=== PATIENT | female | born 1965 | race Caucasian/White ===

== ENCOUNTER → 2016-07-26 | Outpatient (CLI) | payer BC ==
[~2016-07-26] MED LIST: MULT-506 PO; VITAMIN D PO
--- NOTE | 2016-07-26 13:45 | DIAGNOSTIC IMAGING REPORT ---
LEFT WRIST 4 VIEWS HISTORY: M25.532 Wrist pain, acute, left COMPARISON: None. FINDINGS: There is no fracture or dislocation. Soft tissues are unremarkable. No radiopaque foreign bodies. IMPRESSION: No fractures. Electronically signed by: Jamil Ackerman M.D. 07/26/2016 1:44 PM Dictated Date/Time: 07/26/2016 1:43 PM
== END | disposition home or self-care (01) ==
LOC: C.RAD1850 13:23
PROVIDERS: ATTEND Nurse Practitioner Adult Health
DX: M25.532 Pain in left wrist (principal)

== ENCOUNTER → 2017-03-12 | Outpatient (CLI) | payer BC ==
[~2017-03-12] VITALS: Ht 162.6 cm; Wt 103.6 kg
[2017-03-12 12:37] VITALS: BP 140/86; PULSE 82; Ht 162.6 cm; Wt 103.6 kg
== END | disposition home or self-care (01) ==
LOC: C.NEUR 12:08
PROVIDERS: ATTEND Internal Medicine Pulmonary Disease
DX: R06.83 Snoring (principal); G47.00 Insomnia, unspecified; J34.2 Deviated nasal septum; R53.83 Other fatigue; I10 Essential (primary) hypertension; E66.9 Obesity, unspecified

== ENCOUNTER → 2017-03-29 | Outpatient (CLI) | payer BC ==
--- NOTE | 2017-03-29 15:24 | MAMMOGRAPHY REPORT ---
BILATERAL DIGITAL SCREENING MAMMOGRAM TOMOSYNTHESIS WITH CAD: 03/29/2017 CLINICAL HISTORY: Routine screening. Patient has no complaints. TECHNIQUE: Breast tomosynthesis in addition to standard 2D mammography was performed. Current study was also evaluated with a Computer Aided Detection (CAD) system. COMPARISON: Comparison is made to exams dated: 03/28/2016 mammogram, 10/05/2015 mammogram, 10/05/2015 ul trasound, 04/06/2015 mammogram, 04/06/2015 ultrasound, and 03/24/2015 mammogram - [facility]. BREAST COMPOSITION: The tissue of both breasts is heterogeneously dense, which may obscure small mas ses. FINDINGS: No suspicious masses, calcifications, or areas of architectural distortion are noted in ei ther breast. There has been no significant interval change compared to prior exams. Small bilateral circumscribed benign-appearing masses are again noted, which likely represent cysts, with cysts seen on prior ultrasound exams. Scattered bilateral benign-appearing calcifications are stable. IMPRESSION: ACR BI-RADS CATEGORY 2: BENIGN There is no mammographic evidence of malignancy. A 1 year screening mammogram is recommended. The pa tient will receive written notification of the results. Approximately 10% of breast cancers are not detected with mammography. A negative mammographic report should not delay biopsy if a clinically suggestive mass is present. Jeannine Rebollar M.D. /:03/29/2017 15:03:23 Crm Functional Analyst: Cyndi ESPINOZA)(M), [facility] letter sent: Normal 1/2 BI-RADS Code: ACR BI-RADS Category 2: Benign
== END | disposition home or self-care (01) ==
LOC: C.MAMM 11:14
PROVIDERS: ATTEND Obstetrics & Gynecology
DX: Z12.31 Encounter for screening mammogram for malignant neoplasm of breast (principal)

== ENCOUNTER → 2017-06-17 | Outpatient (CLI) | payer BC, OTHER ==
--- NOTE | 2017-06-19 10:01 | POLYSOMNOGRAPH REPORT ---
CLINICAL DATA: A 52-year-old female with a BMI of 39.2 referred by myself and Nay Sandoval for a sleep study for symptoms of loud snoring, obesity, fatigue, and gasping episodes at night. She also has about deviated septum and may have allergies. Her [place] sleepiness score is 4/24. On the evening of 06/17/2017, a home sleep apnea test was performed using a Thumbplay type 3 monitor. RECORDING RESULTS: Total recording time was 10 hours. The patient's monitoring time and estimated sleep time was 9.8 hours. RESPIRATORY DATA: Mild sleep apnea was documented. The EVITA was 7.1. There were 37 obstructive and 1 central apneic episodes. There were 32 hypopneic episodes recorded. The longest respiratory event was 46 seconds. OXIMETRY DATA: Transient nocturnal hypoxemia was seen. Oxygen russel was 82%. Mean saturation was 94%. Time below 89% was 3 minutes. HEART RATE DATA: Heart rates ranged from 55-69 beats per minute. SNORING DATA: Loud snoring was recorded throughout the night. IMPRESSION: Mild sleep apnea/hypopnea with an EVITA of 7.1. RECOMMENDATIONS: The patient would benefit from use of an oral appliance, a repeat sleep study with CPAP, or use of auto CPAP. Clinical correlation is needed.
== END | disposition home or self-care (01) ==
LOC: C.NEUR 09:01
PROVIDERS: ATTEND Internal Medicine Pulmonary Disease
DX: J34.2 Deviated nasal septum (principal); R53.83 Other fatigue; E66.9 Obesity, unspecified; R06.83 Snoring

== ENCOUNTER → 2017-09-17 | Outpatient (CLI) | payer OTHER ==
--- NOTE | 2017-09-17 09:26 | DIAGNOSTIC IMAGING REPORT ---
FUSION CT SINUSES W/O CLINICAL HISTORY: 52 years-old Female presenting with J32.9 Chronic mxalunnovT63.3 Hypertrophy of both inferior nasal turbinates. TECHNIQUE: Multidetector CT of the sinuses was performed without the use of intravenous contrast. IV contrast: None. A dose lowering technique was used consistent with the principles of ALARA (as low as reasonably achievable). COMPARISON: None. CT DOSE (mGy.cm): The estimated cumulative dose is 565.02 mGy.cm. FINDINGS: Internal Combustion Engineer topogram: Unremarkable. Paranasal sinuses clear. Mastoid air cells and middle ears clear. No sclerosis of the sinus thomas. Leftward deviation of the bony nasal septum with bony spurring. Nasofrontal ethmoidal recesses patent. Ostiomeatal units patent. No significant anatomic variant. No bony dehiscence of the carotid siphons or optic canals. Mucosal swelling of the right inferior turbinate. Slightly relates to normal nasal passage cycling. Orbits normal. Limited intracranial evaluation within normal limits. Superficial soft tissues of the face normal apart from small calcific densities in the cutis, which likely relate to a history of cystic acne. IMPRESSION: 1. No current evidence of acute or chronic sinusitis. 2. No significant anatomic variant. 3. Mucosal swelling of the right inferior turbinate likely relates to normal nasal passage cycling. Electronically signed by: Alejandro Schreiber M.D. 09/17/2017 9:25 AM Dictated Date/Time: 09/17/2017 9:19 AM
== END | disposition home or self-care (01) ==
LOC: C.CTS 09:04
DX: J32.9 Chronic sinusitis, unspecified (principal); J34.3 Hypertrophy of nasal turbinates

== ENCOUNTER 2017-10-16 05:50 | Emergency (ER) | payer OTHER ==
[~2017-10-16] VITALS: Ht 162.6 cm; Wt 105.9 kg
[2017-10-16 05:55] VITALS: TEMP 36.8; Ht 162.6 cm; Wt 105.9 kg
[2017-10-16] MEDS ORDERED: ACETAMINOPHEN 500 MG TAB PO STA (05:59)
[2017-10-16] MEDS ORDERED: LISI-461 PO (06:24)
[2017-10-16] MEDS ORDERED: IBUP-103 PO (06:24)
[2017-10-16] MEDS ORDERED: MONT1TAB3 PO (06:24)
[2017-10-16] MEDS ORDERED: CHOL1CAP57 PO (06:24)
--- NOTE | 2017-10-16 06:34 | DIAGNOSTIC IMAGING REPORT ---
CT HEAD WITHOUT CONTRAST (CT) CLINICAL HISTORY: Head pain status post trauma COMPARISON STUDY: No previous studies for comparison. TECHNIQUE: Axial CT of the brain is performed from the vertex to the skull base. IV contrast was not administered for this examination. A dose lowering technique was utilized adhering to the principles of ALARA. CT DOSE: 841.38 mGy.cm FINDINGS: No intra or extra-axial mass lesions are visualized. There is no CT evidence of acute cortical infarction. There is no evidence of midline shift. There is no acute hemorrhage. No calvarial fractures are visualized. There is no evidence of pathologic ventricular dilatation. There is a left frontal, periorbital and premaxillary soft tissue hematoma IMPRESSION: 1. No acute intracranial findings 2. Left frontal, periorbital, and premaxillary soft tissue hematoma Electronically signed by: Shane Ackerman M.D. 10/16/2017 6:33 AM Dictated Date/Time: 10/16/2017 6:31 AM
--- NOTE | 2017-10-16 06:45 | EMERGENCY ROOM VISIT NOTE ---
History First contact with patient: 05:58 Chief Complaint: FALL Stated Complaint: FALL-LEFT EYE SWOLLEN History of Present Illness The patient is a 52 year old female who presents to the Emergency Room with complaints of head injury with left orbital swelling after patient's actually tripped and hit her face off the scale in the bathroom early this morning at 2: 30 AM. Patient states she took 2 ibuprofen's and iced the area. She states the swelling progressed and that is what prompted her to come to the ER. Patient describes a headache as throbbing, ranging severity 5 out of 10 localized to the left orbital region. Nothing makes it better or worse. Patient denies chest pain, dyspnea, cervical pain, eye pain, vision changes, balance problems, dental pain, jaw pain, chest pain, dyspnea, abdominal pain, numbness, tingling or any other medical complaints. No blood thinners. Patient states she had some mild hand discomfort but that has now resolved. Review of Systems An 10 system review of systems was completed with positives and pertinent negatives listed in the HPI. Past Medical/Surgical History Hypertension, seasonal allergies Social History Smoking Status: Never Smoker Smokeless Tobacco Use: No Drug Use: none Marital Status: Housing Status: lives with family Current/Historical Medications Scheduled Cholecalciferol (Vitamin D3), 1 CAP PO DAILY Lisinopril (Lisinopril), 10 MG PO DAILY Montelukast Sodium (Singulair), 10 MG PO DAILY Multivitamin (Multivitamin), 1 TAB PO QAM Scheduled PRN Ibuprofen Tab (Advil), 200-600 MG PO Q4H PRN for Pain Physical Exam Vital Signs Date Time Temp Pulse Resp B/P (MAP) Pulse Ox O2 Delivery O2 Flow Rate FiO2 10/16/17 05:55 36.8 107 18 178/92 96 Room Air Physical Exam VITALS: Vitals are noted on the nurse's note and reviewed by myself. Vital signs hypertensive. GENERAL: Pleasant female ambulating without difficulties, in no acute distress, nondiaphoretic, well-developed well-nourished. SKIN: Left orbital contusion. The rest of the skin was without rashes, erythema , edema, or bruising. There is no tenting of the skin. Capillary reflex less than 2 seconds. HEAD: Normocephalic atraumatic. Face: Left orbit tender to palpation with contusion present. Patient can fully open and close jaw without pain. No dental injury appreciated. EARS: External auditory canals clear, tympanic membranes pearly waldrop without erythema or effusion bilaterally. EYES: Pupils equal round and reactive to light and accommodation. Conjunctivae without injection, sclerae without icterus. Extraocular movements intact. No pain with EOMI. NOSE: Patent, turbinates without inflammation or discharge. No sinus tenderness. MOUTH: Mucous membranes moist. Pharynx without erythema or exudate. Uvula midline. Airway patent. Tongue does not deviate. NECK: Supple without nuchal rigidity. No lymphadenopathy. No thyromegaly. Cervical spine is nontender. No JVD. HEART: Regular rate and rhythm without murmurs gallops or rubs. LUNGS: Clear to auscultation bilaterally without wheezes, rales or rhonchi. No retractions or accessory muscle use. ABDOMEN: Positive bowel sounds x 4. Normal tympanic percussion. Soft, nontender, without masses or organomegaly. Steel sign negative. No guarding or rebound tenderness. No CVA tenderness MUSCULOSKELETAL: No muscle atrophy, erythema, or edema noted. No thoracic or lumbar tenderness. 5 out of 5 strength throughout. NEURO: Patient was alert and oriented to person place and time. Normal sensation to light and sharp touch. No focal neurological deficits. Cranial nerves II through XII grossly intact. No prior drift. Cerebellar exam intact. Medical Decision & Procedures Medications Administered Medications (Trade) Dose Ordered Sig/Damian Route Start Time Stop Time Status Last Admin Dose Admin Acetaminophen (Tylenol Tab) 1,000 mg NOW STAT PO 10/16/17 05:59 10/16/17 06:05 DC 10/16/17 06:20 1,000 MG ED Course Prior records/ancillary studies reviewed. Triage Nursing notes reviewed. Additional history obtained from family. The patient's history was concerning for traumatic head injury Differential diagnosis: Etiologies such as concussion, contusion, fracture, subdural hematoma, epidural hematoma, intraparenchymal hemorrhage, as well as other traumatic pathologies were entertained. Physical examination findings: As above. ER treatment provided: P.o. Tylenol On reassessment the patient felt better. Diagnostics interpreted by me: Imaging studies: CT FACIAL: Compared to 09/17/17. No evidence of acute fracture. Left facial periorbital soft tissue swelling. Radiologist: Tricia Sellers M.D. CT HEAD WITHOUT CONTRAST (CT) CLINICAL HISTORY: Head pain status post trauma COMPARISON STUDY: No previous studies for comparison. TECHNIQUE: Axial CT of the brain is performed from the vertex to the skull base. IV contrast was not administered for this examination. A dose lowering technique was utilized adhering to the principles of ALARA. CT DOSE: 841.38 mGy.cm FINDINGS: No intra or extra-axial mass lesions are visualized. There is no CT evidence of acute cortical infarction. There is no evidence of midline shift. There is no acute hemorrhage. No calvarial fractures are visualized. There is no evidence of pathologic ventricular dilatation. There is a left frontal, periorbital and premaxillary soft tissue hematoma IMPRESSION: 1. No acute intracranial findings 2. Left frontal, periorbital, and premaxillary soft tissue hematoma Electronically signed by: Shane Ackerman M.D. 10/16/2017 6:33 AM Dictated Date/Time: 10/16/2017 6:31 AM It appears the patient has a head injury with orbital contusion. Patient had no pain with EOMI. She had a normal neurological exam and was neurovascularly intact. Negative CT imaging. Patient was counseled on head injury signs and symptoms and on contusion. She is advised to symptoms persist to follow-up concussion clinic here in town or here in the ER sooner for headache, fevers, confusion, vomiting, worsening signs or symptoms or as needed. Patient had no other injuries are noted. She is well-appearing. She is ambulating without difficulties. By the evaluation outlined above emergent etiologies such as fracture, subdural hematoma, epidural hematoma, intraparenchymal hemorrhage, as well as others were deemed relatively unlikely. The pt informed about the findings as listed above. All questions were answered and pleased with the treatment. Return instructions were outlined and the patient was discharged in stable condition. Referral: The patient was referred back to their primary care physician for follow-up in 2 to 3 days for a recheck of the current condition. The chart was completed utilizing [employer] voice recognition software. Grammatical errors, random word insertions, pronoun errors, and incomplete sentences are an occassional consequence of this system due to software limitations, ambient noise, and hardware issues. Any formal questions or concerns about the content, text, or information contained within the body of this dictation should be directly addressed to the physician hr assistant for clarification. Medical Decision As above Head Trauma GCS Score: 15 Medication Reconcilliation Current Medication List: was personally reviewed by me Blood Pressure Screening Patient's blood pressure: Elevated blood pressure Blood pressure disposition: Referred to PCP Impression Primary Impression: Head injury Additional Impression: Contusion of left orbital tissues Departure Information Dispostion Home / Self-Care Condition GOOD Referrals Nay Sandoval C.R.N.P. (PCP) Patient Instructions My [employer] Additional Instructions Monitor your blood pressure. It was high today. Read head injury handout and return for any symptoms. Tylenol 1000 mg as needed for pain (Maximum 3000 mg Tylenol in 24 hr period). Avoid alcohol and contact sports/activities for one week and follow up with family doctor prior to returning to these activities if still symptomatic. Ice and elevate head. If your symptoms persist more than a week then follow up with the concussion clinic. Call [phone]. Return to ER sooner for headache, fevers, confusion, worsening signs or symptoms or as needed. Problem Qualifiers Primary Impression: Head injury Encounter type: initial encounter Qualified Codes: S09.90XA - Unspecified injury of head, initial encounter
[2017-10-16 07:02] VITALS: BP 144/91; PULSE 87; O2SAT 96
--- NOTE | 2017-10-16 09:12 | DIAGNOSTIC IMAGING REPORT ---
FACIAL BONES-MXILLOFAC WITHOUT CLINICAL HISTORY: 52 years-old Female presenting with fall, left orbital injury. TECHNIQUE: Multidetector CT of the face was performed without the use of intravenous contrast. IV contrast: None. A dose lowering technique was used consistent with the principles of ALARA (as low as reasonably achievable). COMPARISON: None. CT DOSE (mGy.cm): The estimated cumulative dose is 841.[address] head. FINDINGS: Fagot Heater topogram: Unremarkable. Soft tissue swelling, subcutaneous infiltration, and small hematoma in the left periorbital region. There is also trace subgaleal fluid or hemorrhage in the left frontal region. No intraorbital hemorrhage or infiltration. Globes intact. Paranasal sinuses and mastoid air cells clear. Leftward deviation of the bony nasal septum with bony spurring, chronic. Prior nasal bone fractures may be evident. No convincing evidence of acute osseous injury of the face. The mandible is intact. Teeth intact apart from postsurgical change. Temporal mandibular joints intact. IMPRESSION: 1. Extensive superficial soft tissue injury in the left periorbital and left frontal region with contusion and hematoma. 2. No convincing evidence of acute osseous injury of the face. Electronically signed by: Alejandro Schreiber M.D. 10/16/2017 9:10 AM Dictated Date/Time: 10/16/2017 6:53 AM
== END 2017-10-16 07:04 | disposition home or self-care (01) ==
LOC: C.EDB 05:51 → C.EDA 07:04
DX: S05.12XA Contusion of eyeball and orbital tissues, left eye, initial encounter (principal); W22.8XXA Striking against or struck by other objects, initial encounter; Y92.012 Bathroom of single-family (private) house as the place of occurrence of the external cause; I10 Essential (primary) hypertension; Z79.899 Other long term (current) drug therapy